=== PATIENT | male | born 1995 | race Caucasian/White ===

== ENCOUNTER 2025-01-23 12:01 | Emergency (ER) | payer OTHER, SELFPAY ==
[~2025-01-23] VITALS: Ht 180.3 cm; Wt 103.2 kg
[2025-01-23] MEDS: PROPARACAINE 0.5% OPHTH SOL 15ML OD ONE (16:45)
[2025-01-23] MEDS: FLUORESCEIN OPHTH 1 MG STRIP OD ONE (16:45)
[2025-01-23] MEDS ORDERED: CIPR0.3S37 OD (17:05)
[2025-01-23 17:07] VITALS: BP 137/86; TEMP 97.7; O2SAT 98
== END 2025-01-23 17:11 | disposition home or self-care (01) ==
LOC: M ED 12:01
DX: S05.01XA Injury of conjunctiva and corneal abrasion without foreign body, right eye, initial encounter (principal); W50.0XXA Accidental hit or strike by another person, initial encounter; Y92.84 Military training ground as the place of occurrence of the external cause; Y93.89 Activity, other specified; Y99.1 Military activity